=== PATIENT | male | born 1990 | race Two or more races ===

== ENCOUNTER 2020-07-25 08:07 | Inpatient (IN) | payer OTHER ==
[~2020-07-25] VITALS: Ht 182.9 cm; Wt 70.8 kg
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
[2020-07-25] MEDS ORDERED: MORPHINE SULFATE INJ 4 MG/ML DISP.SYRIN ONE (08:28)
[2020-07-25] MEDS ORDERED: ONDANSETRON HCL/PF 4 MG/2 ML VIAL ONE (08:28)
[2020-07-25] MEDS ORDERED: MORPHINE SULFATE INJ 2 MG/ML DISP.SYRIN IV ONE (08:30)
[2020-07-25] MEDS ORDERED: ONDANSETRON HCL/PF 4 MG/2 ML VIAL IV ONE (08:30)
[2020-07-25] MEDS ORDERED: IV NS 0.9% 1,000 ML BAG IV ONE (08:30)
[2020-07-25 08:41] LABS: BASOPHILS % (AUTO) 0.3 % (0.0-2.0); EOSINOPHILS % (AUTO) 0.9 % (0.0-6.0); HEMATOCRIT 45 % (39-51); HEMOGLOBIN 15.4 g/dL (13.5-17.5); LYMPHOCYTES # (AUTO) 2.7 /CMM (0.8-4.8); LYMPHOCYTES % (AUTO) 41.8 % (20.0-44.0); MEAN CORPUSCULAR HGB CONC 34 g/dl (31.0-36.0); MEAN CORPUSCULAR VOLUME 89 fL (80-96); MONOCYTES # (AUTO) 0.4 /CMM (0.1-1.30); MONOCYTES % (AUTO) 6.9 % (2.0-12.0); NEUTROPHILS # (AUTO) 3.2 /CMM (1.8-8.9); NEUTROPHILS % (AUTO) 50.1 % (43.0-81.0); PLATELET COUNT (AUTO) 212 /CMM (150-450); RED BLOOD CELL COUNT(AUTO) 5.11 MIL/uL (4.5-6.0); WHITE BLOOD COUNT (AUTO) 6.4 K/uL (4.3-11.0)
[2020-07-25 08:46] LABS: CREATININE 0.9 mg/dL (0.6-1.3); POTASSIUM 3.8 mmol/L (3.5-5.1)
[2020-07-25 08:52] LABS: ALBUMIN 4.4 g/dL (3.4-5.0); BILIRUBIN,DIRECT 0.1 mg/dL (0.0-0.2); BILIRUBIN,TOTAL 0.5 mg/dL (0.2-1.0); TOTAL PROTEIN, SERUM 7.8 g/dL (6.4-8.2)
--- NOTE | 2020-07-25 09:20 | NUR ---
[facility] CALLED HIDE AND SKIN FLESHING MACHINE OPERATOR PAGED.
--- NOTE | 2020-07-25 09:23 | NUR ---
CALLED [facility] [phone] [place] [facility] [place]
--- NOTE | 2020-07-25 09:36 | NUR ---
PATIENT NOT ABLE TO PROVIDE URINE SAMPLE AT THIS TIME, MD CHOI
--- NOTE | 2020-07-25 11:15 | NUR ---
SPOKE TO TOLU FROM [facility]. PATIENT OK TO BE ADMITTED
[2020-07-25] MEDS ORDERED: HYDROCODONE/APAP 5/325MG TABLET PO PRN (11:30)
[2020-07-25] MEDS ORDERED: MAGNESIUM HYDROXIDE 30 ML UDC PO PRN (11:30)
[2020-07-25] MEDS ORDERED: ONDANSETRON HCL/PF 4 MG/2 ML VIAL IVP PRN (11:30)
[2020-07-25] MEDS ORDERED: IV NS 0.9% 1,000 ML IV PRN (11:30)
[2020-07-25] MEDS ORDERED: ZOLPIDEM TARTRATE 5 MG TABLET PO PRN (11:30)
[2020-07-25] MEDS ORDERED: MAG HYDROX/AL HYDROX/SIMETH 30 ML UDC PO PRN (11:30)
[2020-07-25] MEDS ORDERED: Z GUARD REMEDY 2 OZ OINT TP PRN (11:30)
[2020-07-25] MEDS ORDERED: ACETAMINOPHEN 325 MG TABLET PO PRN (11:30)
[2020-07-25] MEDS ORDERED: HYDROMORPHONE INJ 2 MG/ML DISP.SYRIN IV PRN (11:30)
--- NOTE | 2020-07-25 11:40 | NUR ---
MARK BLAIR, CALLED NURSING LOADING SUPERVISOR FOR MEDSURG BED.
--- NOTE | 2020-07-25 11:56 | NUR ---
BED 314
--- NOTE | 2020-07-25 12:01 | NUR ---
REPORT GIVEN TO DIONY RAMIREZ
--- NOTE | 2020-07-25 13:00 | NUR ---
Patient admitted from ER with cuca reported by Jec RN.
[2020-07-25 14:00] VITALS: BP 116/75
[2020-07-25] MEDS: METRONIDAZOLE 500MG/ NS 100ML 500 MG in PREMIX 1 EA IV SCH ×2 (14:13→20:53)
[2020-07-25] MEDS: CIPROFLOXACIN IV RTU 400 MG in PREMIX 1 EA IV SCH ×2 (14:13→23:52)
[2020-07-25 16:00] VITALS: BP 118/71
--- NOTE | 2020-07-25 18:00 | NUR ---
RN Closing note Patient in bed resting comfortably, denies N/V remain NG tube no emesis observed. Patient started ATB IV, no adverse reaction observed during the shift. Skin is warm to touch kept clean.dry, intact IV site running NS at 90 ml. Respiratory even and unlabored on room air. Keep elevated HOB for ensure airway and aspiration precaution and lowest bed position for safety. 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
[2020-07-25 20:00] VITALS: BP 120/77
--- NOTE | 2020-07-25 20:24 | NUR ---
Patient in bed resting comfortably upon shift, no complaints N/V remain NG tube no emesis observed to right nare and in tact. Patient s antibiotic IV, no adverse reaction observed during the shift. Intact IV site running NS at 90 ml. Respiratory even and unlabored on room air. Nurse to keep elevated HOB for precaution and lowest bed position for safety. Call light within reach, Given requested PRN for sleep. No complaints of pain noted at this time.
[2020-07-26] MEDS: METRONIDAZOLE 500MG/ NS 100ML 500 MG in PREMIX 1 EA IV SCH ×2 (06:24→13:29)
[2020-07-26 06:48] LABS: BASOPHILS % (AUTO) 0.3 % (0.0-2.0); EOSINOPHILS % (AUTO) 1.1 % (0.0-6.0); HEMATOCRIT 44 % (39-51); HEMOGLOBIN 14.8 g/dL (13.5-17.5); LYMPHOCYTES # (AUTO) 1.4 /CMM (0.8-4.8); LYMPHOCYTES % (AUTO) 27.8 % (20.0-44.0); MEAN CORPUSCULAR HGB CONC 34 g/dl (31.0-36.0); MEAN CORPUSCULAR VOLUME 88 fL (80-96); MONOCYTES # (AUTO) 0.4 /CMM (0.1-1.30); MONOCYTES % (AUTO) 8.5 % (2.0-12.0); NEUTROPHILS # (AUTO) 3.1 /CMM (1.8-8.9); NEUTROPHILS % (AUTO) 62.3 % (43.0-81.0); PLATELET COUNT (AUTO) 198 /CMM (150-450); RED BLOOD CELL COUNT(AUTO) 4.95 MIL/uL (4.5-6.0); WHITE BLOOD COUNT (AUTO) 4.9 K/uL (4.3-11.0)
[2020-07-26 07:13] LABS: CALCIUM, SERUM 8.7 mg/dL (8.5-10.1); CREATININE 0.9 mg/dL (0.6-1.3); MAGNESIUM 1.9 mg/dL (1.8-2.4); PHOSPHORUS 3.6 mg/dL (2.5-4.9); POTASSIUM 4.1 mmol/L (3.5-5.1)
[2020-07-26 08:00] VITALS: BP 120/61
[2020-07-26] MEDS ORDERED: DIATR MEGLU/DIATRIZOATE SODIUM 120 ML BOTTLE (GASTROGRAPHIN) ONE (09:02)
--- NOTE | 2020-07-26 09:15 | NUR ---
MS RN OPENING NOTE RECEIVED PT IN BED, AWAKE, RESPONSIVE AND A/O X 4. NO C/O PAIN AT THIS TIME. PT IS ON ROOM AIR, NO SOB, LABORED BREATHING OR S/SX RESPIRATORY DISTRESS NOTED. PT HAS AN NGT IN THE RIGHT NOSTRIL, PATENT, INTACT AND FLUSHING WELL WITH NO COMPLAINTS AT THIS TIME. PT HAS AN IV ACCESS ON THE RIGHT AC, PATENT, INTACT AND FLUSHING WELL. RUNNING NS BUT DISCONTINUED BECAUSE PT WENT TO RADIOLOGY WITH TECH VIA WHEELCHAIR FOR X-RAY FOR SMALL BOWEL FOLLOW-THROUGH. NO S/SX OF INFECTION OR INFILTRATION NOTED ON IV SITE. PT IS CURRENTLY NPO, EDUCATED ON STATUS AND PT WAS ABLE TO VERBALIZE UNDERSTANDING. PT IS AMBULATORY WITH STEADY GAIT. SAFETY MEASURES IN PLACE: BED IN LOWEST, LOCKED POSITION WITH BOTH UPPER SIDE RAILS UP X2. CALL LIGHT PLACED WITHIN REACH. WILL CONTINUE TO MONITOR.
[2020-07-26] MEDS: CIPROFLOXACIN IV RTU 400 MG in PREMIX 1 EA IV SCH (12:05)
[2020-07-26 16:00] VITALS: BP 109/68
--- NOTE | 2020-07-26 18:31 | NUR ---
MS RN CLOSING NOTE PT IS IN BED, AWAKE, RESPONSIVE AND A/O X 4. PT STILL ON ROOM AIR, NO SOB, LABORED BREATHING OR S/SX RESPIRATORY DISTRESS NOTED AT THIS TIME. PT HAS AN IV ACCESS ON THE RIGHT AC, PATENT, INTACT AND FLUSHING WELL, CURRENTLY RUNNING NS WITH NO S/SX OF INFECTION OR INFILTRATION NOTED. PT IS AMBULATORY WITH STEADY GAIT, HAS BATHROOM PRIVILEGES. SAFETY MEASURES MAINTAINED: BED IN LOWEST POSITION AND LOCKED WITH BOTH UPPER SIDE RAILS UP X2. CALL LIGHT PLACED WITHIN REACH. PT HAS PLANS FOR DISCHARGE THIS PM. 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
== END 2020-07-26 19:00 | disposition home or self-care (01) | DRG 247 ==
LOC: ER 08:10 → MED 11:59
PROVIDERS: ADMIT Nurse Practitioner Acute Care; ATTEND Nurse Practitioner Acute Care
DX: K56.609 Unspecified intestinal obstruction, unspecified as to partial versus complete obstruction (principal); Z98.890 Other specified postprocedural states; Z87.891 Personal history of nicotine dependence; K56.7 Ileus, unspecified; Y23.0XXS Shotgun discharge, undetermined intent, sequela; Z20.822 Contact with and (suspected) exposure to COVID-19
CPT/HCPCS: 36415; 74250-TC; 80048-TC; 80076-TC; 82150-TC; 83690-TC; 83735-TC; 84100-TC; 85025-TC; 87081-TC; A4216; C9803; G0378; J0744; J2270; J2405; J7030; J7050; Q9963

== ENCOUNTER 2020-09-15 19:47 | Emergency (ER) | payer OTHER ==
[~2020-09-15] VITALS: Ht 185.4 cm; Wt 63.5 kg
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
[2020-09-15] MEDS ORDERED: ACET-2605 PO (21:09)
--- NOTE | 2020-09-15 21:11 | NUR ---
Patient discharged to home in stable condition. Written and verbal after care instructions given. Patient verbalizes understanding of instruction. Pt ambulatory with a steady gait
[2020-09-15 21:19] VITALS: BP 120/77
== END 2020-09-15 21:11 | disposition home or self-care (01) ==
LOC: ER 19:49
DX: S00.33XA Contusion of nose, initial encounter (principal); Y04.0XXA Assault by unarmed brawl or fight, initial encounter; Y93.89 Activity, other specified; Y92.89 Other specified places as the place of occurrence of the external cause; Y99.8 Other external cause status
CPT/HCPCS: 70160-TC